=== PATIENT | male | born 1975 | race Two or more races ===

== ENCOUNTER 2018-02-14 05:53 | Day surgery (SDC) | payer OTHER ==
[~2018-02-14] VITALS: Ht 167.6 cm; Wt 115.2 kg
[2018-02-14] MEDS ORDERED: AMOX1TAB5 (06:16)
[2018-02-14] MEDS ORDERED: INTESTINEX680 M1 (06:16)
[2018-02-14] MEDS ORDERED: PNEU16DI2 (06:16)
[2018-02-14] MEDS ORDERED: AMOXICILLIN875 MG (06:17)
[2018-02-14] MEDS ORDERED: LOSARTAN-HCTZ1 EAC1 (06:17)
[2018-02-14] MEDS ORDERED: TOPROL XL50 M1 (06:18)
[2018-02-14] MEDS ORDERED: PROCARDIA (06:19)
[2018-02-14] MEDS ORDERED: COLACE100 MG PO (18:53)
[2018-02-14] MEDS ORDERED: PERCOCET 5-3251 EACH PO (18:53)
== END 2018-02-14 19:00 | disposition home or self-care (01) ==
LOC: ER 05:53 → SURH 07:23 → ER 07:23 → SEC-K 07:23 → O/R 07:23 → CIR.AMB 08:00 → O/R 11:15 → SURH 11:15 → SEC-K 11:15 → EDSTATUS 15:00 → CIR.AMB 19:00 → O/R 23:31 → SURH 23:31
DX: K61.0 Anal abscess (principal); K62.5 Hemorrhage of anus and rectum; K62.89 Other specified diseases of anus and rectum